=== PATIENT | male | born 1950 | race Two or more races ===

== ENCOUNTER 2017-07-05 13:31 | Emergency (ER) | payer OTHER ==
[~2017-07-05] VITALS: Ht 167.6 cm; Wt 72.6 kg
[2017-07-05 14:00] VITALS: BP 110/78
[2017-07-05] MEDS ORDERED: KETOROLAC TROMETH 60MG/2ML VIAL IM ONE (14:30)
== END 2017-07-05 15:33 | disposition home or self-care (01) ==
LOC: ER 13:31
DX: M25.511 Pain in right shoulder (principal)
CPT/HCPCS: 73030; 96372; 99284; J1885

== ENCOUNTER 2017-09-13 15:57 | Emergency (ER) | payer MEDICARE, OTHER ==
[~2017-09-13] VITALS: Ht 167.6 cm; Wt 72.6 kg
[2017-09-13 17:37] VITALS: BP 120/68
== END 2017-09-13 18:00 | disposition left against medical advice (07) ==
LOC: ER 15:57
DX: G89.29 Other chronic pain (principal); M25.511 Pain in right shoulder; Z90.49 Acquired absence of other specified parts of digestive tract

== ENCOUNTER 2018-07-19 11:58 | Emergency (ER) | payer OTHER ==
[~2018-07-19] VITALS: Ht 167.6 cm; Wt 68.9 kg
[2018-07-19 14:08] VITALS: BP 128/75
== END 2018-07-19 14:16 | disposition home or self-care (01) ==
LOC: ER 12:00
DX: T83.038A Leakage of other urinary catheter, initial encounter (principal); Z46.6 Encounter for fitting and adjustment of urinary device; Z87.442 Personal history of urinary calculi; Y84.6 Urinary catheterization as the cause of abnormal reaction of the patient, or of later complication, without mention of misadventure at the time of the procedure; Y92.89 Other specified places as the place of occurrence of the external cause
CPT/HCPCS: 51702

== ENCOUNTER 2018-07-21 01:51 | Emergency (ER) | payer OTHER ==
[~2018-07-21] VITALS: Ht 167.6 cm; Wt 73.5 kg
[2018-07-21] MEDS ORDERED: LIDOCAINE 2% JELLY 11ml (GLYDO) ONE (07:22)
[2018-07-21] MEDS ORDERED: LIDOCAINE 2% JELLY 11ml (GLYDO) UR ONE (07:30)
[2018-07-21 07:36] LABS: Urine Amorphous Crystal FEW /hpf (None Seen); Urine Bacteria NONE SEEN /hpf (None Seen); Urine Blood 1+ /uL (Negative); Urine Specific Gravity 1.005 (1.001-1.035); Urine WBC <1 /hpf (0 - 3)
[2018-07-21 08:35] VITALS: BP 140/77
== END 2018-07-21 09:52 | disposition home or self-care (01) ==
LOC: ER 01:53
DX: T83.038A Leakage of other urinary catheter, initial encounter (principal); Z87.442 Personal history of urinary calculi; Z87.440 Personal history of urinary (tract) infections
CPT/HCPCS: 51702; 81001

== ENCOUNTER 2018-08-29 18:05 | Emergency (ER) | payer OTHER ==
[~2018-08-29] VITALS: Ht 167.6 cm; Wt 72.6 kg
[2018-08-29 18:40] VITALS: BP 168/91
[2018-08-29 19:48] LABS: Urine Bacteria NONE SEEN /hpf (None Seen); Urine Blood 1+ /uL (Negative); Urine Specific Gravity 1.011 (1.001-1.035); Urine WBC 5 /hpf (0 - 3)
== END 2018-08-29 19:16 | disposition home or self-care (01) ==
LOC: ER 18:09
DX: R33.9 Retention of urine, unspecified (principal); Z87.442 Personal history of urinary calculi
CPT/HCPCS: 51702; 81001

== ENCOUNTER 2018-09-19 13:23 | Emergency (ER) | payer OTHER ==
[~2018-09-19] VITALS: Ht 165.1 cm; Wt 70.3 kg
[2018-09-19 15:15] VITALS: BP 101/78
== END 2018-09-19 16:03 | disposition left against medical advice (07) ==
LOC: ER 13:26
DX: T83.9XXA Unspecified complication of genitourinary prosthetic device, implant and graft, initial encounter (principal); Z87.442 Personal history of urinary calculi; Z87.440 Personal history of urinary (tract) infections

== ENCOUNTER 2020-03-31 17:57 | Emergency (ER) | payer OTHER ==
[~2020-03-31] VITALS: Ht 167.6 cm; Wt 72.6 kg
[2020-03-31 19:24] LABS: Urine Bacteria FEW /hpf (None Seen); Urine Blood 2+ /uL (Negative); Urine Mucus FEW (None Seen); Urine Specific Gravity 1.017 (1.001-1.035); Urine WBC 69 /hpf (0 - 3)
[2020-03-31] MEDS ORDERED: cefTRIAXone SOD 1,000 MG VL IM ONE (22:45)
[2020-03-31] MEDS ORDERED: LIDOCAINE 1% HCL (LOCAL ANESTH.) INJ 20ML MDV IJ ONE (22:45)
[2020-03-31] MEDS ORDERED: KETOROLAC TROMETH 60MG/2ML VIAL IM ONE (23:15)
[2020-04-01 02:32] VITALS: BP 122/74
== END 2020-04-01 02:33 | disposition home or self-care (01) ==
LOC: ER 17:57
DX: N45.1 Epididymitis (principal); N43.2 Other hydrocele; N39.0 Urinary tract infection, site not specified
CPT/HCPCS: 76870; 81001; 96372; 99284; J0696; J1885; J2001

== ENCOUNTER 2020-04-07 10:26 | Emergency (ER) | payer OTHER, MEDICAID ==
[~2020-04-07] VITALS: Ht 165.1 cm; Wt 72.6 kg
[2020-04-07 12:18] VITALS: BP 162/74
== END 2020-04-07 13:21 | disposition home or self-care (01) ==
LOC: ER 10:26 → EDUNIT# 10:26 → ER 13:18
DX: N45.3 Epididymo-orchitis (principal)
CPT/HCPCS: 76870

== ENCOUNTER 2020-04-21 13:49 | Emergency (ER) | payer OTHER, MEDICAID ==
[~2020-04-21] VITALS: Ht 167.6 cm; Wt 72.6 kg
[2020-04-21 18:50] VITALS: BP 140/76
== END 2020-04-21 16:57 | disposition home or self-care (01) ==
LOC: ER 13:49
DX: T83.098A Other mechanical complication of other urinary catheter, initial encounter (principal); N39.0 Urinary tract infection, site not specified; Z87.442 Personal history of urinary calculi
CPT/HCPCS: 51702

== ENCOUNTER 2021-09-19 22:31 | Emergency (ER) | payer OTHER, MEDICAID ==
[~2021-09-19] VITALS: Ht 167.6 cm; Wt 74.8 kg
[2021-09-20 01:33] LABS: Urine Bacteria NONE SEEN /hpf (None Seen); Urine Blood Negative /uL (Negative); Urine WBC 2 /hpf (0 - 3)
[2021-09-20 08:02] VITALS: BP 128/72
[2021-09-20] MEDS ORDERED: ACET-1158 PO (09:04)
[2021-09-20] MEDS ORDERED: SULF800T7 PO (09:04)
== END 2021-09-20 09:09 | disposition home or self-care (01) ==
LOC: ER 22:31
DX: R30.0 Dysuria (principal); R81 Glycosuria
CPT/HCPCS: 81001

== ENCOUNTER → 2022-01-11 | Day surgery (SDC) | payer OTHER, MEDICAID ==
[~2022-01-11] VITALS: Ht 165.1 cm; Wt 70.3 kg
[~2022-01-11] MED LIST: ACCU-CHEK COMFORT CURVE STRIP VI ONE; ATOR20TA50 PO; DexAMETHasone SOD PHOS 10MG/1ML VIAL INJ ONE; GLIP5TAB12 PO; HYDROmorphone HCL 2 MG/ML VL/or syr IV PRN; LISI-711 PO; METF-490 PO; METOCLOPRAMIDE HCL 5MG/ml INJ 2ml VIAL IV PRN; MIDAZOLAM HCL 2MG/2ML 2ml VIAL (1mg/ml) ONE; MORPHINE SULFATE 4 MG/ML SYR/VIAL IV PRN; ONDANSETRON HCL 4 MG/2 ML VIAL ONE; PROPOFOL 10 MG/ML 20 ML IV ONE; SODIUM CHLORIDE LOCK 10 ML ONE; ceFAZolin 1GM/50ML 100 ML IV ONE; fentaNYL CITRATE 100 MCG/2 ML VL ONE
[2022-01-11] MEDS: HYDROmorphone HCL 2 MG/ML VL/or syr IV PRN ×3 (09:45→10:05)
[2022-01-11 10:45] VITALS: BP 125/69
== END | disposition home or self-care (01) ==
LOC: SUR 07:08
PROVIDERS: ATTEND Urology
DX: N40.1 Benign prostatic hyperplasia with lower urinary tract symptoms (principal); I10 Essential (primary) hypertension; E11.9 Type 2 diabetes mellitus without complications; E78.5 Hyperlipidemia, unspecified; Z90.49 Acquired absence of other specified parts of digestive tract; Z83.3 Family history of diabetes mellitus; Z20.822 Contact with and (suspected) exposure to COVID-19
CPT/HCPCS: 52441; 52442; 82962; J0690; J1100; J1170; J2250; J2405; J2704; J3010; L8699; U0003

== ENCOUNTER 2022-11-09 10:39 | Emergency (ER) | payer OTHER, MEDICAID ==
[~2022-11-09] VITALS: Ht 167.6 cm; Wt 70.8 kg
[~2022-11-09 10:39] MED LIST changes: -ACCU-CHEK COMFORT CURVE STRIP VI ONE; -DexAMETHasone SOD PHOS 10MG/1ML VIAL INJ ONE; -HYDROmorphone HCL 2 MG/ML VL/or syr IV PRN; -METOCLOPRAMIDE HCL 5MG/ml INJ 2ml VIAL IV PRN; -MIDAZOLAM HCL 2MG/2ML 2ml VIAL (1mg/ml) ONE; -MORPHINE SULFATE 4 MG/ML SYR/VIAL IV PRN; -ONDANSETRON HCL 4 MG/2 ML VIAL ONE; -PROPOFOL 10 MG/ML 20 ML IV ONE; -SODIUM CHLORIDE LOCK 10 ML ONE; -ceFAZolin 1GM/50ML 100 ML IV ONE; -fentaNYL CITRATE 100 MCG/2 ML VL ONE
[2022-11-09 10:52] VITALS: BP 128/67; PULSE 62; RESP 16; TEMP 97.6; O2SAT 98
[2022-11-09] MEDS ORDERED: TRAM50TA2 PO (13:57)
[2022-11-09] MEDS ORDERED: HYDROcodone-ACET 5/325MG TAB PO ONE (14:00)
== END 2022-11-09 14:16 | disposition home or self-care (01) ==
LOC: ER 10:39
DX: S53.491A Other sprain of right elbow, initial encounter (principal); I10 Essential (primary) hypertension; E11.9 Type 2 diabetes mellitus without complications; Z87.442 Personal history of urinary calculi; Z90.49 Acquired absence of other specified parts of digestive tract; Z79.84 Long term (current) use of oral hypoglycemic drugs; Z79.899 Other long term (current) drug therapy; X50.0XXA Overexertion from strenuous movement or load, initial encounter; Y93.89 Activity, other specified; Y92.89 Other specified places as the place of occurrence of the external cause; Y99.8 Other external cause status
CPT/HCPCS: 73080

== ENCOUNTER 2023-01-23 21:36 | Emergency (ER) | payer OTHER, MEDICAID ==
[2023-01-23 21:36] VITALS: BP 112/62
[~2023-01-23 21:36] MED LIST changes: +TRAM50TA2 PO
[2023-01-24] MEDS ORDERED: IBUPROFEN 600 MG TAB PO ONE (00:15)
[2023-01-24] MEDS ORDERED: DICL1GEL73 TD (01:30)
[2023-01-24] MEDS ORDERED: IBUP-1454 PO (01:30)
[2023-01-24 01:41] VITALS: PULSE 67; RESP 19; TEMP 98.2; O2SAT 98
== END 2023-01-24 01:42 | disposition home or self-care (01) ==
LOC: ER 21:36 → EDBD 21:36 → ER 01-24 01:42
DX: S53.402A Unspecified sprain of left elbow, initial encounter (principal); S89.92XA Unspecified injury of left lower leg, initial encounter; I10 Essential (primary) hypertension; E11.9 Type 2 diabetes mellitus without complications; Z90.49 Acquired absence of other specified parts of digestive tract; Z79.1 Long term (current) use of non-steroidal anti-inflammatories (NSAID); Z79.899 Other long term (current) drug therapy; V43.62XA Car passenger injured in collision with other type car in traffic accident, initial encounter; Y93.89 Activity, other specified; Y92.410 Unspecified street and highway as the place of occurrence of the external cause; Y99.8 Other external cause status
CPT/HCPCS: 73080; 73562